=== PATIENT | male | born 1955 | race Caucasian/White ===

== ENCOUNTER → 2016-07-06 | Outpatient (REF) | payer OTHER ==
[2016-07-06 13:44] LABS: BLOOD UREA NITROGEN 13 MG/DL (7-18); CREATININE FOR GFR 0.99 MG/DL (0.70-1.30); GLOMERULAR FILTRATION RATE > 60.0 (>49)
== END ==
LOC: M LABDRAW1 12:38
PROVIDERS: ATTEND Physical Medicine & Rehabilitation
DX: M47.896 Other spondylosis, lumbar region (principal)

== ENCOUNTER 2016-07-16 07:41 | Emergency (ER) | payer OTHER ==
[2016-07-16] MEDS ORDERED: VALS320T (07:59)
[2016-07-16] MEDS ORDERED: PRIM50TA6 (07:59)
[2016-07-16] MEDS ORDERED: MAGN250T5 PO (07:59)
[2016-07-16] MEDS ORDERED: AMLO5TAB2 (07:59)
[2016-07-16] MEDS ORDERED: PROP1TAB29 (07:59)
[2016-07-16] MEDS ORDERED: PERCOCET 5MG/325MG TAB PO ONE (08:15)
[2016-07-16] MEDS ORDERED: ONDANSETRON 4MG/2ML VIAL (J2405) IV ONE (08:45)
[2016-07-16] MEDS ORDERED: MORPHINE 4 MG/ML 1ML SYRINGE IV ONE (08:45)
[2016-07-16 09:19] VITALS: BP 160/98
[2016-07-16] MEDS ORDERED: PRED20TA PO (09:22)
[2016-07-16] MEDS ORDERED: ZANA4TAB PO (09:22)
[2016-07-16] MEDS ORDERED: PERC5TAB6 PO (09:22)
== END 2016-07-16 09:40 | disposition home or self-care (01) ==
LOC: EDBD 07:41 → M ED 09:04
DX: M54.42 Lumbago with sciatica, left side (principal); G89.29 Other chronic pain; M51.26 Other intervertebral disc displacement, lumbar region; I10 Essential (primary) hypertension; Z79.899 Other long term (current) drug therapy
CPT/HCPCS: 96372; 96374; 96375; 99282; J2405; J3360

== ENCOUNTER → 2017-01-11 | Outpatient (CLI) | payer OTHER ==
[~2017-01-11] MED LIST: AMLO5TAB2; MAGN250T6 PO; PERC5TAB12 PO; PRED20TA PO; PRIM50TA6; PROP1TAB29; VALS320T; ZANA4TAB PO
--- NOTE | 2017-01-11 17:32 | REP ---
ULTRASOUND RIGHT WRIST: Real-time sonographic evaluation of the right wrist performed at the site of a palpable lump. There is a superficial complex cyst measuring 1.1 x 1.0 x 1.1 cm. This is adjacent to a tendon which also demonstrates surrounding fluid and likely tenosynovitis. IMPRESSION: At the site of a reported abnormality, there is a complex cyst adjacent to a tendon with moderate surrounding fluid. The findings likely represent tenosynovitis with a cyst along the tendon sheath. Underlying partial tendon tear cannot be excluded. Signed by Donato Evans MD 01/13/2017 04:21 P
== END ==
LOC: M RAD 16:27
PROVIDERS: ATTEND Orthopaedic Surgery
DX: M67.431 Ganglion, right wrist (principal)

== ENCOUNTER → 2017-03-04 | Outpatient (CLI) | payer OTHER ==
[2017-03-04 16:58] LABS: ANION GAP 4 MEQ/L (8-16); BLOOD UREA NITROGEN 15 MG/DL (7-18); CARBON DIOXIDE LEVEL 33 MEQ/L (21-32); CHLORIDE LEVEL 105 MEQ/L (98-107); CREATININE FOR GFR 0.94 MG/DL (0.70-1.30); GLOMERULAR FILTRATION RATE > 60.0 (>49); GLUCOSE, FASTING 83 MG/DL (80-110); POTASSIUM SERUM 4.6 MEQ/L (3.5-5.1); SODIUM LEVEL 142 MEQ/L (136-145)
--- NOTE | 2017-03-06 21:00 | ECGEPIP ---
Stationary ECG Study [facility] Test Date: 2017-03-04 Pat Name: OCTAVIO TIM Department: Room: - Gender: M [employer]: KIARA : 1955 Requested By: Katerina Cruz PA-C Order Number: [id number] Reading MD: Omar Ghotra Measurements Intervals [place] Rate: 58 P: 44 NM: 164 QRS: 18 QRSD: 112 T: 13 QT: 426 QTc: 420 Interpretive Statements SINUS BRADYCARDIA MODERATE INTRAVENTRICULAR CONDUCTION DELAY Wider QRSD compared with 12/26/2013. Electronically Signed On 03-06-2017 20:59:55 EST by Omar Ghotra
== END ==
LOC: M LAB 16:07
PROVIDERS: ATTEND Physician Assistant Surgical
DX: Z01.810 Encounter for preprocedural cardiovascular examination (principal)

== ENCOUNTER → 2017-03-18 | Outpatient (REF) | payer OTHER | LOC: M LAB REF 13:10 | DX: M71.331 Other bursal cyst, right wrist (principal) | CPT/HCPCS: 88305 ==

== ENCOUNTER → 2017-06-09 | Outpatient (CLI) | payer OTHER | LOC: M ADAMS 08:56 | DX: M79.645 Pain in left finger(s) (principal) | CPT/HCPCS: 73140 ==

== ENCOUNTER → 2017-06-16 | Outpatient (REF) | payer OTHER ==
[2017-06-16 13:02] LABS: ANION GAP 6 MEQ/L (8-16); BLOOD UREA NITROGEN 17 MG/DL (7-18); CALCIUM LEVEL 8.5 MG/DL (8.8-10.2); CARBON DIOXIDE LEVEL 29 MEQ/L (21-32); CHLORIDE LEVEL 109 MEQ/L (98-107); CREATININE FOR GFR 0.86 MG/DL (0.70-1.30); GLOMERULAR FILTRATION RATE > 60.0 (>49); GLUCOSE, FASTING 92 MG/DL (70-100); POTASSIUM SERUM 4.5 MEQ/L (3.5-5.1); SODIUM LEVEL 144 MEQ/L (136-145)
== END ==
LOC: M LABDRWAD 12:11
DX: G25.0 Essential tremor (principal); I10 Essential (primary) hypertension
CPT/HCPCS: 80048

== ENCOUNTER → 2017-08-20 | Outpatient (CLI) | payer OTHER | LOC: M RAD 11:07 | DX: S66.315A Strain of extensor muscle, fascia and tendon of left ring finger at wrist and hand level, initial encounter (principal); X58.XXXA Exposure to other specified factors, initial encounter; Y92.89 Other specified places as the place of occurrence of the external cause; Y93.9 Activity, unspecified; Y99.9 Unspecified external cause status ==

== ENCOUNTER 2017-09-30 06:28 | Day surgery (SDC) | payer OTHER ==
[2017-09-30] MEDS ORDERED: SIMETHICONE 40MG/0.6ML DROPS 30ML As Ordered (07:08)
[2017-09-30] MEDS ORDERED: PROPOFOL 200 MG/20 ML VIAL As Ordered ×2 (07:13)
[2017-09-30] MEDS ORDERED: NS 1,000 ML IV (07:30)
== END 2017-09-30 08:09 | disposition home or self-care (01) ==
LOC: M OPP 08:09
DX: Z12.11 Encounter for screening for malignant neoplasm of colon (principal); K57.30 Diverticulosis of large intestine without perforation or abscess without bleeding; I10 Essential (primary) hypertension; N40.0 Benign prostatic hyperplasia without lower urinary tract symptoms; N52.9 Male erectile dysfunction, unspecified; M19.90 Unspecified osteoarthritis, unspecified site; Z79.899 Other long term (current) drug therapy; Z87.891 Personal history of nicotine dependence; Z96.652 Presence of left artificial knee joint
CPT/HCPCS: 45385

== ENCOUNTER → 2017-11-15 | Outpatient (REF) | payer OTHER ==
[2017-11-15 19:49] LABS: PROSTATIC SPECIFIC AG MONITOR 4.86 NG/ML (< 4.0)
== END ==
LOC: M LAB REF 19:24
DX: R97.20 Elevated prostate specific antigen [PSA] (principal)

== ENCOUNTER → 2017-12-17 | Outpatient (CLI) | payer OTHER ==
[2017-12-17 13:54] LABS: ALBUMIN 3.6 GM/DL (3.2-5.2); ALBUMIN/GLOBULIN RATIO 1.13 (1.00-1.93); ALKALINE PHOSPHATASE 49 U/L (45-117); ALT/SGPT 38 U/L (12-78); ANION GAP 8 MEQ/L (8-16); AST/SGOT 25 U/L (7-37); BILIRUBIN,TOTAL 0.4 MG/DL (0.2-1.0); BLOOD UREA NITROGEN 14 MG/DL (7-18); CALCIUM LEVEL 8.5 MG/DL (8.8-10.2); CARBON DIOXIDE LEVEL 28 MEQ/L (21-32); CHLORIDE LEVEL 105 MEQ/L (98-107); CHOLESTEROL LEVEL 158 MG/DL (<200); GLOMERULAR FILTRATION RATE > 60.0 (>49); GLUCOSE, FASTING 94 MG/DL (70-100); HDL CHOLESTEROL 50 MG/DL (>40); LDL CHOLESTEROL 73 MG/DL (<100); NON-HDL-C 108 MG/DL; POTASSIUM SERUM 4.1 MEQ/L (3.5-5.1); SODIUM LEVEL 141 MEQ/L (136-145); TOTAL PROTEIN 6.8 GM/DL (6.4-8.2); TRIGLYCERIDES LEVEL 176 MG/DL (<150)
== END ==
LOC: M ADAMS 10:24
DX: I10 Essential (primary) hypertension (principal)
CPT/HCPCS: 80053

== ENCOUNTER → 2018-06-24 | Outpatient (REF) | payer OTHER ==
[~2018-06-24] MED LIST changes: -AMLO5TAB2; +AMLO5TAB6; -PROP1TAB29; +PROP20TA72
[2018-06-24 13:13] LABS: ALT/SGPT 48 U/L (12-78); BILIRUBIN,TOTAL 0.3 MG/DL (0.2-1.0); BLOOD UREA NITROGEN 15 MG/DL (7-18); CALCIUM LEVEL 9.3 MG/DL (8.8-10.2); CARBON DIOXIDE LEVEL 29 MEQ/L (21-32); CHLORIDE LEVEL 105 MEQ/L (98-107); CHOLESTEROL LEVEL 206 MG/DL (<200); CHOLESTEROL RISK RATIO 4.577 (<5); GLOMERULAR FILTRATION RATE > 60.0 (>49); GLUCOSE, FASTING 84 MG/DL (70-100); HDL CHOLESTEROL 45 MG/DL (>40); LDL CHOLESTEROL 141 MG/DL (<100); NON-HDL-C 161 MG/DL; POTASSIUM SERUM 4.6 MEQ/L (3.5-5.1); SODIUM LEVEL 140 MEQ/L (136-145); TOTAL PROTEIN 6.8 GM/DL (6.4-8.2); TRIGLYCERIDES LEVEL 98 MG/DL (<150)
== END ==
LOC: M LABDRWAD 12:11
PROVIDERS: ATTEND Internal Medicine
DX: I10 Essential (primary) hypertension (principal)

== ENCOUNTER → 2018-11-18 | Outpatient (REF) | payer OTHER ==
[~2018-11-18] MED LIST changes: +CYCL10TA PO; -VALS320T; +VALS320T2
== END ==
LOC: M LABDRWAD 12:17
PROVIDERS: ATTEND Urology
DX: R97.20 Elevated prostate specific antigen [PSA] (principal)

== ENCOUNTER → 2018-11-18 | Outpatient (REF) | payer OTHER ==
[2018-11-18 13:12] LABS: ALBUMIN 4.1 GM/DL (3.2-5.2); ALT/SGPT 21 U/L (12-78); BILIRUBIN,TOTAL 0.3 MG/DL (0.2-1.0); BLOOD UREA NITROGEN 13 MG/DL (7-18); CALCIUM LEVEL 9.4 MG/DL (8.8-10.2); CARBON DIOXIDE LEVEL 28 MEQ/L (21-32); CHLORIDE LEVEL 104 MEQ/L (98-107); CHOLESTEROL LEVEL 180 MG/DL (<200); CHOLESTEROL RISK RATIO 3.673 (<5); GLOMERULAR FILTRATION RATE > 60.0 (>49); GLUCOSE, FASTING 91 MG/DL (70-100); HDL CHOLESTEROL 49 MG/DL (>40); LDL CHOLESTEROL 118 MG/DL (<100); NON-HDL-C 131 MG/DL; POTASSIUM SERUM 4.4 MEQ/L (3.5-5.1); SODIUM LEVEL 143 MEQ/L (136-145); TRIGLYCERIDES LEVEL 67 MG/DL (<150)
== END ==
LOC: M LABDRWAD 12:16
PROVIDERS: ATTEND Internal Medicine
DX: E78.5 Hyperlipidemia, unspecified (principal); I10 Essential (primary) hypertension

== ENCOUNTER 2019-03-04 13:59 | Emergency (ER) | payer OTHER ==
[~2019-03-04] VITALS: Ht 185.4 cm; Wt 95.4 kg
[~2019-03-04 13:59] MED LIST changes: -CYCL10TA PO; +VALS320T; -VALS320T2
[2019-03-04] MEDS ORDERED: NS 1,000 ML IV ONE (16:45)
[2019-03-04] MEDS ORDERED: KETOROLAC 30 MG/ML VIAL (J1885) IV ONE (17:15)
[2019-03-04 17:45] LABS: BASO % 0.4 % (0.0-1.0); EOS # 0.2 10^3/uL (0.0-0.5); HEMATOCRIT 42.8 % (42.0-52.0); LYMPH # 1.5 10^3/uL (1.5-5.0); MEAN CORPUSCULAR HEMOGLOBIN 32.1 pg (27.0-33.0); MEAN CORPUSCULAR HGB CONC 32.7 g/dl (32.0-36.5); MEAN CORPUSCULAR VOLUME 98.2 fl (80.0-96.0); MONO # 0.8 10^3/uL (0.0-0.8); MONO % 10.3 % (0.0-5.0); NEUTROPHILS # 5.2 10^3/uL (1.5-8.5); RED BLOOD COUNT 4.36 10^6/uL (4.30-6.10); WHITE BLOOD COUNT 7.7 10^3/uL (4.0-10.0)
[2019-03-04] MEDS ORDERED: CYCLOBENZAPRINE 10 MG TAB PO ONE (18:45)
[2019-03-04 19:31] LABS: CK-MB VALUE MASS 2.6 NG/ML (<3.6); CPK CREATINE PHOSPHOKINASE 143 U/L (39-308); MB/CK RELATIVE INDEX 1.82 (< OR =4); TROPONIN I < 0.02 NG/ML (< 0.10)
[2019-03-04 20:05] VITALS: BP 160/98
[2019-03-04] MEDS ORDERED: CYCL10TA PO (20:22)
--- NOTE | 2019-03-04 22:22 | ECGEPIP ---
[facility] - ED Test Date: 2019-03-04 Pat Name: OCTAVIO TIM Department: Room: - Gender: Male [employer]: : 1955 Requested By: MARINO Buchanan PA-C Order Number: [id number] Reading MD: Omar Meadows Measurements Intervals [place] Rate: 53 P: 39 TX: 181 QRS: 35 QRSD: 90 T: 29 QT: 456 QTc: 430 Interpretive Statements SINUS BRADYCARDIA QRS normalized from tracing done 03-04-17 Baseline artifact Electronically Signed on 03-04-2019 22:21:48 EST by Omar Meadows
--- NOTE | 2019-03-05 07:44 | REP ---
CT abdomen and pelvis without IV or oral contrast: History: Left flank pain. Rule out kidney stone. No comparison study. 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 The lung bases are clear on axial CT images. There is a 2.7 cm cyst in the left lobe of the liver. The liver is otherwise normal in size and homogeneous in texture. Spleen is unremarkable. There is a small left adrenal adenoma. This measures 2.4 cm in diameter. It has a mean Hounsfield unit density of minus 6.5. No other adrenal abnormality is seen. No abnormalities noted in the gallbladder or in the pancreas. There is an intrarenal calculus at mid position in the right kidney measuring 2-3 mm in size. No other intrarenal nephrolithiasis is seen. There is borderline hydronephrosis bilaterally but no ureteral stone is observed. The prostate is moderately enlarged and contains one or two dystrophic calcifications. There is mild diffuse bladder wall thickening. No bladder mass lesion or bladder dilation is observed. No ureteral stone or mass is seen. Seminal vesicles are symmetric. No pelvic mass or adenopathy is observed. No retroperitoneal mass is seen. Small and large intestinal bowel loops are normal in the abdomen and pelvis. Normal appendix is seen in the right mid abdomen. There is air and stool in a nondistended colon. There is no CT evidence of diverticulitis. There is no CT evidence of diverticulosis. No ascites or abdominal wall defect is seen. Bone window settings show no bony destructive lesion. Impression: Enlarged prostate. Borderline dilation of the intrarenal collecting systems and proximal ureters but no ureteral calculus or mass seen. Mild bladder wall thickening. There is an intrarenal calculus at mid pole position right kidney 3 mm in diameter. Otherwise negative. Normal appendix seen. Electronically Signed by Christ Thompson MD 03/05/2019 08:46 A
== END 2019-03-04 21:21 | disposition home or self-care (01) ==
LOC: M ED 13:59
DX: N20.1 Calculus of ureter (principal); S39.012A Strain of muscle, fascia and tendon of lower back, initial encounter; X58.XXXA Exposure to other specified factors, initial encounter; Y92.89 Other specified places as the place of occurrence of the external cause; I10 Essential (primary) hypertension; N40.0 Benign prostatic hyperplasia without lower urinary tract symptoms; Z79.899 Other long term (current) drug therapy
CPT/HCPCS: 74176; 80047; 81001; 82550; 82553; 84484; 85025; 93005; 96361; 96374; 99284; J1885

== ENCOUNTER → 2019-12-20 | Outpatient (REF) | payer MEDICARE, OTHER ==
[~2019-12-20] MED LIST changes: +AMLO1TAB24; -AMLO5TAB6; +CYCL-707 PO; -VALS320T; +VALS320T2
== END ==
LOC: M LABDRWAD 16:06
PROVIDERS: ATTEND Urology
DX: R97.20 Elevated prostate specific antigen [PSA] (principal)

== ENCOUNTER → 2020-01-08 | Outpatient (REF) | payer MEDICARE, OTHER ==
[2020-01-08 17:47] LABS: BLOOD UREA NITROGEN 17 MG/DL (7-18); CREATININE FOR GFR 0.76 MG/DL (0.70-1.30); GLOMERULAR FILTRATION RATE > 60.0 (>49)
== END ==
LOC: M LABDRWAD 16:04
PROVIDERS: ATTEND Urology
DX: R97.20 Elevated prostate specific antigen [PSA] (principal)

== ENCOUNTER → 2020-07-09 | Outpatient (REF) | payer MEDICARE, OTHER | LOC: M LABDRWAD 12:14 → M LAB REF 12:14 | PROVIDERS: ATTEND Urology | DX: R97.20 Elevated prostate specific antigen [PSA] (principal) ==

== ENCOUNTER → 2021-07-09 | Outpatient (CLI) | payer MEDICARE, OTHER ==
[2021-07-11 23:11] LABS: PSA % FREE 16.1 % (.); PSA FREE 0.87 ng/mL; PSA TOTAL 5.4 ng/mL (0.0-4.0)
== END ==
LOC: M ADAMS 14:39
PROVIDERS: ATTEND Urology
DX: R97.20 Elevated prostate specific antigen [PSA] (principal)

== ENCOUNTER → 2022-01-23 | Outpatient (CLI) | payer MEDICARE, OTHER ==
[2022-01-23 15:12] LABS: BASO % 0.4 % (0.0-1.0); EOS # 0.1 10^3/uL (0.0-0.5); EOS % 1.9 % (0.0-3.0); HEMATOCRIT 40.5 % (42.0-52.0); HEMOGLOBIN 13.3 g/dl (13.5-17.5); LYMPH # 1.2 10^3/uL (1.5-5.0); LYMPH % 22.1 % (24.0-44.0); MEAN CORPUSCULAR HEMOGLOBIN 33.5 pg (27.0-33.0); MEAN CORPUSCULAR HGB CONC 32.8 g/dl (32.0-36.5); MONO # 0.6 10^3/uL (0.0-0.8); MONO % 11.4 % (2.0-8.0); NEUTROPHILS # 3.4 10^3/uL (1.5-8.5); PLATELET COUNT, AUTOMATED 194 10^3/uL (150-450); RED BLOOD COUNT 3.97 10^6/uL (4.30-6.10); WHITE BLOOD COUNT 5.3 10^3/uL (4.0-10.0)
[2022-01-23 15:38] LABS: BLOOD UREA NITROGEN 12 MG/DL (7-18); CALCIUM LEVEL 9.1 MG/DL (8.8-10.2); CARBON DIOXIDE LEVEL 29 MEQ/L (21-32); CHLORIDE LEVEL 107 MEQ/L (98-107); GLOMERULAR FILTRATION RATE > 60.0 (>49); GLUCOSE, FASTING 100 MG/DL (70-100); POTASSIUM SERUM 4.9 MEQ/L (3.5-5.1); SODIUM LEVEL 140 MEQ/L (136-145)
[2022-01-23 15:39] LABS: ALBUMIN 3.6 GM/DL (3.2-5.2); ALT/SGPT 43 U/L (12-78); BILIRUBIN,TOTAL 0.4 MG/DL (0.2-1.0); CHOLESTEROL LEVEL 166 MG/DL (<200); CHOLESTEROL RISK RATIO 2.184 (<5); HDL CHOLESTEROL 76 MG/DL (>40); LDL CHOLESTEROL 72 MG/DL (<100); NON-HDL-C 90 MG/DL; TOTAL PROTEIN 6.7 GM/DL (6.4-8.2); TRIGLYCERIDES LEVEL 88 MG/DL (<150)
== END ==
LOC: M LABDRWAD 11:41
PROVIDERS: ATTEND Internal Medicine
DX: E78.5 Hyperlipidemia, unspecified (principal); E78.3 Hyperchylomicronemia; I10 Essential (primary) hypertension

== ENCOUNTER → 2022-07-17 | Outpatient (REF) | payer MEDICARE, OTHER | LOC: M LABDRWAD 12:41 | PROVIDERS: ATTEND Urology | DX: R97.20 Elevated prostate specific antigen [PSA] (principal) ==

== ENCOUNTER 2023-02-25 07:04 | Day surgery (SDC) | payer MEDICARE, OTHER ==
[~2023-02-25] VITALS: Ht 185.4 cm; Wt 99.3 kg
[~2023-02-25 07:04] MED LIST changes: +APAP500T10 PO; +IBUP200C29 PO; +LIDOCAINE 2% 100MG/5ML SDV (FOR ANES.) As Ordered ONE; +NS 1,000 ML IV ONE; +PRIM50TA6 PO; -PROP20TA72; +PROP20TA72 PO; +SAW450CA5 PO; +SILD20TA50 PO; +TERA5CAP3 PO; +VITA-243 PO; +propofoL 200 MG/20 ML VIAL As Ordered ONE
[2023-02-25 08:27] VITALS: TEMP 98.5
[2023-02-25 08:50] VITALS: BP 125/70; O2SAT 96
== END 2023-02-25 08:55 | disposition home or self-care (01) ==
LOC: M OPP 07:04
PROVIDERS: ATTEND Surgery
DX: Z12.11 Encounter for screening for malignant neoplasm of colon (principal); Z86.010 Personal history of colon polyps; K57.30 Diverticulosis of large intestine without perforation or abscess without bleeding; Z79.1 Long term (current) use of non-steroidal anti-inflammatories (NSAID); Z79.52 Long term (current) use of systemic steroids; Z79.899 Other long term (current) drug therapy

== ENCOUNTER → 2024-09-24 | Outpatient (CLI) | payer MEDICARE, OTHER ==
[~2024-09-24] MED LIST changes: -LIDOCAINE 2% 100MG/5ML SDV (FOR ANES.) As Ordered ONE; -NS 1,000 ML IV ONE; -propofoL 200 MG/20 ML VIAL As Ordered ONE
[2024-09-24 17:09] LABS: COLLAGEN EPINEPHRINE 157 SECONDS (74-162)
== END ==
LOC: M LAB 13:06
PROVIDERS: ATTEND Physician Assistant Surgical
DX: Z01.812 Encounter for preprocedural laboratory examination (principal)